=== PATIENT | male | born 1940 | race Caucasian/White ===

== ENCOUNTER 2024-10-25 17:24 | Emergency (ER) | payer MEDICARE, OTHER ==
[2024-10-25] MEDS ORDERED: Lidocaine 2% 5 ML SDV INFILT ONE (17:25)
[2024-10-25] MEDS: Diphtheria,Pertussis(Acell),Tetanus Vaccine 0.5 ML Syringe IM ONE (18:43)
== END 2024-10-25 18:50 | disposition home or self-care (01) ==
LOC: FB.ED 17:24
DX: S61.012A Laceration without foreign body of left thumb without damage to nail, initial encounter (principal); I10 Essential (primary) hypertension; E78.00 Pure hypercholesterolemia, unspecified; E11.9 Type 2 diabetes mellitus without complications; Z23 Encounter for immunization; Z88.5 Allergy status to narcotic agent; W26.8XXA Contact with other sharp object(s), not elsewhere classified, initial encounter
CPT/HCPCS: 12001; 90471; 90715; 99282-25; J2003